=== PATIENT | female | born 1980 | race Caucasian/White ===

== ENCOUNTER 2019-11-21 08:00 | Outpatient (RCR) | payer OTHER, SELFPAY ==
--- NOTE | 2019-10-26 08:45 | PTOPEVAL ---
INITIAL PHYSICAL THERAPY EVALUATION and PLAN OF CARE Thank you for referring Deloris to [facility]. Please review, sign, date and return this plan of care SIS. She will be seen in PT 0-1x/wk x 4 wks. I agree with and certify that the following plan of care is medically necessary. Referring Physician Date Admitting Provider: Attending Provider: Juli Tyler MD Referring Provider: *PT Outpatient Evaluation Start: 10/26/19 07:43 Freq: Status: Active Protocol: Document 10/26/19 07:35 ZACH (Rec: 10/26/19 08:45 [email or web address] [id number]) Therapy Assessment Status Assessment Status Assessment Status Evaluation Outpatient Past Medical History Neurological History Hx Neurological Disorders No Significant History Cardiovascular History Hx Cardiac Disorders No Significant History Respiratory History Hx Asthma Yes: exercise induced Gastrointestinal History Hx Cholecystectomy Yes: 2016 Genitourinary History Hx Other Genitourinary Disorders Yes: cystocele, rectocele Musculoskeletal History Hx Other Musculoskeletal Disorders Yes: impingement R shoulder Endocrine History Hx Hypothyroidism Yes Psychosocial History Hx Anxiety Yes Hx Depression Yes Evaluation Information Problem Diagnosis pelvic organ prolaspe cystocele, rectocele Onset 2017 Subjective Information when she felt that she was Query Text:As Reported By Patient/ needing to have a BM - felt in Family vagina Prior Level of Function Activity Level (Last 3 Months) Occupation manager social services Hand Dominance Right Medications Home Meds (Include: OTC, RX, Vitamins, levothyroxine, zoloft, Herbals, Dose, Route,and Frequency) wellbuturin, klonidine, Query Text:Home Med Entries Will No metasolate-depression/anxiety Longer Recall From Past Visits. Home Meds Must Be Re-entered With Each Visit. Comments Additional Prior Level of Function recreation - play with Comments children Pain Assessment Timing of Pain Assessment Timing of Pain Assessment Assessment Self Report Self Report Pain Level 0 Pain Score Pain Score 0: Self Report Cervical and Lumbar ROM Lumbar ROM Lumbar ROM 75% of Normal Lumbar Comments equal SIJ mobility - no pain with motion Lower Extremity Range of Motion Hip Range of Motion Bilateral Reason Not Measured WNL/Left,WNL/Right Lower Extremity Muscle Strength Testing Hip Strength Bilateral Hip Flexion Strength 5 Normal Hip Abduction Strength 5 Normal Hip Adduction Strength 5 Normal Hip Medial Rotation Strength
--- NOTE | 2019-11-21 09:18 | PTOPEVAL ---
PHYSICAL THERAPY DISCHARGE NOTE Thank you for referring Deloris to [facility]. She has made progress towards goals set. She is competent with her HEP - she just needs to perform it on a regular basis. I agree with Deloris's discharge from physical therapy. Referring Physician Date Admitting Provider: Attending Provider: Juli Tyler MD Referring Provider: *PT Outpatient Evaluation Start: 10/26/19 07:43 Freq: Status: Active Protocol: Document 11/21/19 08:10 ZACH (Rec: 11/21/19 09:18 [email or web address] [email or web address]) Therapy Assessment Status Assessment Status Assessment Status Discharge Evaluation Information Problem Subjective Information Deloris reports that she hasn' Query Text:As Reported By Patient/ t noticed much different with Family leakage with cough, sneeze, or blowing nose - but she admits that she hasn't been very good with performing the exercises. She does feel a greater lift with her pelvic floor when performing the contractions. Pain Assessment Timing of Pain Assessment Timing of Pain Assessment Assessment Self Report Self Report Pain Level 0 Pain Score Pain Score 0: Self Report Pelvic Health Evaluation Pelvic Floor Assessment Sustained Levator Ani Strength increase lift present,able to hold x 10 cts Quick Levator Ani Contraction in 15 9 Seconds PT Clinical Summary Clinical Summary Protocol: PTEVCODE Clinical Summary Pelvic Organ Prolapse Distress Inventory 6 - 33.3% Deloris is able to perform the pelvic floor exercises well. Resistive exercises were added this date and she was able to perform the slower, sustained resistive exercises easier than the shorter, quick contraction similar to a cough, sneeze, blowing nose. She was encouraged to continue with the strengthening exercises on a more regular basis as well as engaging pelvic floor contraction when lifting children, groceries, etc. She is being d/c'ed from PT to HEP - she is to call if she has any questions.
== END 2019-11-22 08:37 | disposition home or self-care (01) ==
LOC: ANHPT 08:00
PROVIDERS: PCP Obstetrics & Gynecology Gynecology; Visit Provider Obstetrics & Gynecology Gynecology
DX: N81.89 Other female genital prolapse (principal); N81.10 Cystocele, unspecified; N81.6 Rectocele
CPT/HCPCS: 97110; 97161

== ENCOUNTER 2020-04-30 19:34 | Emergency (ER) | payer OTHER, SELFPAY ==
--- NOTE | ~2020-04-30 | XR_ITS ---
EXAMINATION: XR chest 2V DATE: 04/30/2020 21:28 INDICATION: Shortness of breath and dizziness TECHNIQUE: PA and lateral views of the chest are obtained. COMPARISON: None available FINDINGS: The lungs are free of acute opacities. There is no pleural effusion or pneumothorax. The ca rdiomediastinal silhouette is normal. There is mild thoracic spondylosis. Surgical clips in the right upper quadrant are likely from prior cholecystectomy. IMPRESSION: 1. No acute cardiopulmonary abnormality. Reviewed, dictated and finalized at location A.
[2020-04-30 19:37] VITALS: BP 142/89; PULSE 94; RESP 20; TEMP 36.4; O2SAT 100
--- NOTE | 2020-04-30 19:40 | ECG_ITS ---
Measurements Intervals [place] Rate: 84 P: 27 WI: 108 QRS: 27 QRSD: 111 T: 21 QT: 386 QTc: 458 Interpretive Statements SINUS RHYTHM WITH SHORT WI INTERVAL INTRAVENTRICULAR CONDUCTION DELAY NONSPECIFIC T-WAVE ABNORMALITY- ANT/INF LEADS BORDERLINE ECG Electronically Signed On 05-01-2020 7:32:21 CDT by Moris Santos D.O.
[2020-04-30 19:51] LABS: Basophils Absolute Auto 0.1 K/mm3 (0.0-0.1); Basophils Percent Auto 0.8 % (0.2-1.2); Eosinophils Absolute Auto 0.1 K/mm3 (0-0.3); Eosinophils Percent Auto 0.4 % (0-4.4); Hematocrit 38.7 % (37.0-47.0); Hemoglobin 12.9 g/dL (12.0-15.0); Immature Granulocyte Absolute 0.07 K/mm3 (0.00-0.031); Immature Granulocyte Percent A 0.4 % (0-0.5); Lymphocytes Absolute Auto 2.85 K/mm3 (0.9-3.2); Lymphocytes Percent Auto 15.3 % (18.3-44.2); Mean Corpuscular HGB Conc 33.3 g/dl (32-36); Mean Platelet Volume 9.2 fl (7.4-10.4); Monocytes Percent Auto 5.2 % (2.6-8.5); Neutrophils Absolute Auto 14.5 K/mm3 (1.3-6.7); Neutrophils Percent Auto 77.9 % (45.5-73.1); Platelet Count Result 419 k/mm3 (150-375); Red Blood Count 4.45 M/mm3 (4.2-5.4); Red Cell Distribution Width 11.9 % (11.5-14.5); White Blood Count 18.6 K/mm3 (4.5-10.0)
[2020-04-30 20:02] LABS: Blood Urea Nitrogen 14 mg/dL (7-17); Calcium 9.1 mg/dL (8.4-10.2); Carbon Dioxide 21 mmol/L (22-30); Chloride 101 mmol/L (98-107); Estimated CRCL calculation 99 ml/min; Estimated Glomerular Filt Rate > 60; Glucose 122 mg/dL (65-105); Potassium 3.3 mmol/L (3.4-5.0); Sodium 134 mmol/L (137-145)
[2020-04-30 21:19] VITALS: O2SAT 100
--- NOTE | 2020-04-30 21:27 | PC.NURSE ---
ambulatory to restroom with steady gait.
--- NOTE | 2020-04-30 21:51 | ED.GENADULT ---
HPI - General Adult General Chief complaint: Shortness of Breath/Dyspnea Stated complaint: sob and dizzy Time Seen by Provider: 04/30/20 21:11 History of Present Illness HPI narrative: Patient is a 39 y/o female complaining moderate SOB, light-headedness, shakiness starting approximately 4 hours ago after a work out. There is no alleviating factor, but her symptoms mostly resolved spontaneously. She denies any fever, chill, cough or chest pain. Related Data Home Medications Medication Instructions Recorded Confirmed bupropion HCl 200 mg PO BID 04/30/20 buspirone 30 mg PO BID 04/30/20 levomefolate calcium 15 mg PO HS 04/30/20 levothyroxine [Synthroid] 50 mcg PO DAILY 04/30/20 quetiapine 04/30/20 quetiapine 100 mg PO HS 04/30/20 quetiapine 100 mg PO HS 04/30/20 sertraline 200 mg PO HS 04/30/20 trazodone 50 mg PO HS 04/30/20 Allergies Allergy/AdvReac Type Severity Reaction Status Date / Time papaya Allergy Mild MOUTH ITCHS Verified 04/30/20 21:11 pineapple Allergy Mild MOUTH ITCHS Verified 04/30/20 21:11 Kiwi Allergy Mild MOUTH ITCHS Uncoded 03/19/17 13:33 Review of Systems Constitutional: Constitutional: Denies chills, Denies fever(s), Denies headache(s) and Denies weakness Eyes: Eyes: Denies blurry vision ENT: Denies headache(s) and Denies neck pain Cardiovascular: Cardiovascular: Denies chest pain and Reports dyspnea Respiratory: Respiratory: Denies cough and Reports dyspnea Gastrointestinal: Gastrointestinal: Denies abdominal pain, Denies diarrhea, Denies nausea and Denies vomiting Genitourinary: Genitourinary: Denies hematuria and Denies dysuria Musculoskeletal: Musculoskeletal: Denies back pain and Denies neck pain Neurologic: Reports dizziness, Denies headache(s) and Denies weakness [facility] Family History Family History Father Hypertension Family history of diabetes mellitus in first degree relative Mother Hypertension Family history of liver disease Sibling Family history of malignant neoplasm of breast in first degree relative Social History Social History Smoking status: Never smoker Alcohol intake: never Gender identity (if verbalized by the patient): Female Exam Const: General: no acute distress and well developed Orientation/consciousness: oriented to person, oriented to place, oriented to time and patient oriented x3 HENMT: Head: normocephalic Ears: external ears normal General nose exam: Normal external nose present Eyes: General: appearance normal, both eyes and all related structures Conjunctivae: conjunctivae normal Neck: Neck: normal visual inspection and full ROM Chest: Chest palpation & inspection: normal inspection of the chest and no tenderness Resp: Effort & Inspection: normal respiratory effort Auscultation: clear to auscultation bilaterally Cardio: Rate: regular rate Rhythm: regular rhythm GI: GI Palp: No abdominal tenderness and Yes Soft to palpation Skin: General skin exam: normal color and turgor normal Neuro: General: oriented to person, oriented to place, oriented to time and patient oriented x3 Cognition (Neuro): normal cognition Extrem: General: normal to inspection, full ROM and no pedal edema Psych: Appearance: grossly normal Mental Status: mental status grossly normal Affect: normal affect Course Vital Signs Vital signs: Vital Signs Temperature 36.4 C L 04/30/20 19:37 Pulse Rate 94 04/30/20 19:37 Respiratory Rate 20 04/30/20 19:37 Blood Pressure 142/89 H 04/30/20 19:37 Pulse Oximetry 100 04/30/20 19:37 Temperature 36.4 C L 04/30/20 19:37 Pulse Rate 93 04/30/20 23:11 Respiratory Rate 18 04/30/20 23:11 Blood Pressure 125/82 04/30/20 23:11 Pulse Oximetry 99 04/30/20 23:11 Medical Decision Making Vital Signs Vital Signs: Vital Signs Temperature 36.4 C L 04/30/20 19:37 Pulse
[2020-04-30 22:02] LABS: Creatine Kinase 384 U/L (30-135)
[2020-04-30 22:15] LABS: NT Pro B Type Natriuretic Pept 24 PG/ML (5-100); Troponin I < 0.012 ng/mL (0.000-0.034)
[2020-04-30] MEDS: POTASSIUM CHLORIDE 20 MEQ TABLET PO (22:34)
[2020-04-30 22:36] VITALS: BP 132/87; PULSE 97; RESP 18; O2SAT 100
[2020-04-30 22:37] LABS: D Dimer 0.27 ug/mL (<0.48)
[2020-04-30 23:11] VITALS: BP 125/82; PULSE 93; RESP 18; O2SAT 99
== END 2020-04-30 23:13 | disposition home or self-care (01) ==
PROVIDERS: Emergency Medicine; Emergency Provider Emergency Medicine
DX: R06.02 Shortness of breath (principal)
CPT/HCPCS: 36415; 71046; 80048; 82550; 83880; 84484; 85025; 85380; 93005; 99284; A9270

== ENCOUNTER 2021-01-17 19:29 | Emergency (ER) | payer OTHER, SELFPAY ==
[2021-01-17 19:43] VITALS: BP 140/87; PULSE 95; RESP 16; TEMP 36.8; O2SAT 99
--- NOTE | 2021-01-17 19:44 | ECG_ITS ---
Measurements Intervals [place] Rate: 87 P: 49 MT: 132 QRS: 22 QRSD: 102 T: 15 QT: 352 QTc: 424 Interpretive Statements SINUS RHYTHM BORDERLINE T WAVE ABNORMALITY- INFERIOR LEADS BASELINE ARTIFACT- III, AVL BORDERLINE ECG Electronically Signed On 01-18-2021 7:48:46 CDT by Moris Santos D.O.
--- NOTE | 2021-01-17 19:47 | ED.GENADULT ---
HPI - General Adult General Chief complaint: Chest Pain Stated complaint: Pain in chest and abdomen Time Seen by Provider: 01/17/21 19:40 Source: patient and RN notes reviewed Mode of arrival: ambulatory Limitations: no limitations History of Present Illness HPI narrative: 40-year-old female presents to the [facility] with complaints of chest pain and pressure, epigastric pain and pressure associated with nausea and shortness of breath. Patient states the nausea started about a week ago but the chest pain and pressure started this morning. Denies any cardiac history. Patient has a history of depression. Related Data Home Medications Medication Instructions Recorded Confirmed trazodone 50 mg PO HS 04/30/20 Allergies Allergy/AdvReac Type Severity Reaction Status Date / Time papaya Allergy Mild MOUTH ITCHS Verified 01/17/21 19:43 pineapple Allergy Mild MOUTH ITCHS Verified 01/17/21 19:43 Kiwi Allergy Mild MOUTH ITCHS Uncoded 01/17/21 19:43 Review of Systems Review of Systems: Narrative: CONSTITUTIONAL: Denies fever, chills, or sweats. EYES: Denies visual changes, redness, or discharge. ENT: Denies rhinorrhea, congestion, sore throat, or otalgia. CARDIOVASCULAR: Reports chest pain and pressure. Denies palpitations edema. RESPIRATORY: Denies cough. Reports dyspnea. GASTROINTESTINAL: Reports epigastric abdominal pain, nausea. Denies vomiting or diarrhea. MUSCULOSKELETAL: Denies back pain, joint pain, or myalgia. NEUROLOGIC: Denies headache, numbness, or weakness. PSYCHIATRIC: Denies anxiety or depression. All other systems reviewed are negative, except as documented in HPI. [facility] Past Medical History Medical History (Updated 01/17/21 @ 19:53 by Maria Victoria Persaud) Depression Family History Family History Father Hypertension Family history of diabetes mellitus in first degree relative Mother Hypertension Family history of liver disease Sibling Family history of malignant neoplasm of breast in first degree relative Social History Social History Smoking status: Never smoker Alcohol intake: never Gender identity (if verbalized by the patient): Female Comments At the time of my signature, I reviewed and agree with the nursing past medical, surgical, social, and family history. There is no relevant family history pertinent to the patient complaint. Exam Narrative: Exam Narrative: GENERAL: This is a well-nourished, well-developed patient, in no apparent distress. Is not diaphoretic. HEAD: normocephalic, atraumatic. EYES: PERRL. Sclera clear/white. Vision is grossly intact. EARS: External ears normal. CARDIOVASCULAR: Regular rate and rhythm without murmurs, gallops, or rubs. RESPIRATORY: Clear to auscultation. Breath sounds equal bilaterally. No wheezes, rales, or rhonchi. GASTROINTESTINAL: Abdomen soft, non-tender, nondistended. No guarding. SKIN: warm, intact with no suspicious lesions or rash, good texture and turgor. NEURO: awake, alert, and oriented to person, place and time. There were no obvious focal neurologic abnormalities. EXTREMITIES: No joint tenderness, effusion, or edema noted. BACK: Nontender without deformity. Course Course Emergency Course: Patient arrived to [facility] with concerns for sternal chest pain and pressure radiating to the left side along with epigastric pain and pressure. EKG performed. Discussed with patient transfer to the ER via EMS, patient declined EMS transport would rather drive herself. Discussed risks versus benefits and patient still declined EMS transfer. Vital Signs Vital signs: Vital Signs Temperature 98.3 F 01/17/21 19:43 Pulse Rate 95 01/17/21 19:43 Respiratory Rate 16 01/17/21 19:43 Blood Pressure 140/87 01/17/21 19:43 Pulse Oximetry 99 01/17/21 19:43 Temperature 98.3 F 01/17/21 19:43 Pulse Rate 95 01/17/21 19:43 Respirato
[2021-01-17 19:59] VITALS: BP 140/87; PULSE 95; RESP 16; TEMP 36.8; O2SAT 99
== END 2021-01-17 19:44 | disposition short-term general hospital (02) ==
PROVIDERS: Emergency Provider Nurse Practitioner
DX: R07.9 Chest pain, unspecified (principal); F32.9 Major depressive disorder, single episode, unspecified
CPT/HCPCS: 93005; 99213; G0463

== ENCOUNTER 2021-01-17 20:02 | Emergency (ER) | payer OTHER, SELFPAY ==
--- NOTE | ~2021-01-17 | CT_ITS ---
EXAMINATION: CT abdomen pelvis w con INDICATION: Epigastric abdominal pain TECHNIQUE: Computed tomographic images of the abdomen and pelvis were obtained after the administrati on of 100 cc of Omnipaque 350 intravenous contrast. The dose-length product (DLP) was 758.45 mGy-cm. Automated exposure control and iterative reconstruction technique were employed. COMPARISON: None available FINDINGS: The lung bases are clear. The heart size is normal. The gallbladder is surgically absent. T he liver, spleen, pancreas, and adrenal glands the right kidney is unremarkable. Hypoattenuating lesi ons of the left kidney measuring up to 5 mm are too small to characterize but likely represent cysts. No pathologically enlarged abdominal or pelvic lymph nodes are identified. There is no free intraper itoneal gas or evidence of bowel obstruction. The appendix is normal. There is a small fat-containing umbilical hernia. Left ovarian cysts measure up to 3 cm. IMPRESSION: 1. No CT correlate for the patient's symptoms. Reviewed, dictated and finalized at location A.
--- NOTE | ~2021-01-17 | XR_ITS ---
EXAMINATION: XR chest 2V DATE: 01/17/2021 21:03 INDICATION: Midsternal chest pain TECHNIQUE: PA and lateral views of the chest are obtained. COMPARISON: 04/30/2020 FINDINGS: The lungs are free of acute opacities. There is no pleural effusion or pneumothorax. The ca rdiomediastinal silhouette is normal. The visualized bones and soft tissues are unremarkable. IMPRESSION: 1. No acute cardiopulmonary abnormality. Reviewed, dictated and finalized at location A.
[2021-01-17 20:21] VITALS: BP 141/76; PULSE 96; RESP 16; TEMP 36.4; O2SAT 99
--- NOTE | 2021-01-17 20:23 | ECG_ITS ---
Measurements Intervals [place] Rate: 89 P: 34 ND: 116 QRS: 37 QRSD: 112 T: 5 QT: 337 QTc: 412 Interpretive Statements SINUS RHYTHM WITH SHORT ND INTERVAL INTRAVENTRICULAR CONDUCTION DELAY BORDERLINE T WAVE ABNORMALITY- INFERIOR LEADS BASELINE ARTIFACT- II, AVR BORDERLINE ECG Electronically Signed On 01-18-2021 7:47:45 CDT by Moris Santos D.O.
[2021-01-17 20:34] LABS: Basophils Absolute Auto 0.1 K/mm3 (0.0-0.1); Basophils Percent Auto 0.9 % (0.2-1.2); Eosinophils Absolute Auto 0.1 K/mm3 (0-0.3); Eosinophils Percent Auto 0.9 % (0-4.4); Hematocrit 39.6 % (37.0-47.0); Hemoglobin 12.7 g/dL (12.0-15.0); Immature Granulocyte Absolute 0.05 K/mm3 (0.00-0.031); Immature Granulocyte Percent A 0.4 % (0-0.5); Lymphocytes Absolute Auto 3.71 K/mm3 (0.9-3.2); Lymphocytes Percent Auto 29.8 % (18.3-44.2); Mean Corpuscular HGB Conc 32.1 g/dl (32-36); Mean Corpuscular Hemoglobin 28.3 pg (26-34); Mean Corpuscular Volume 88.4 fl (80-100); Mean Platelet Volume 9.1 fl (7.4-10.4); Monocytes Absolute Auto 0.7 K/mm3 (0.1-0.6); Monocytes Percent Auto 5.4 % (2.6-8.5); Neutrophils Absolute Auto 7.8 K/mm3 (1.3-6.7); Neutrophils Percent Auto 62.6 % (45.5-73.1); Platelet Count Result 354 k/mm3 (150-375); Red Blood Count 4.48 M/mm3 (4.2-5.4); Red Cell Distribution Width 12.7 % (11.5-14.5); White Blood Count 12.5 K/mm3 (4.5-10.0)
[2021-01-17 20:41] LABS: INR 0.9; Prothrombin Time 12.4 Seconds (11.1-14.7)
[2021-01-17 20:42] LABS: Lipase 116 U/L (23-300)
[2021-01-17 20:44] LABS: Anion Gap 6 mmol/L (8-16); Blood Urea Nitrogen 11 mg/dL (7-17); Calcium 9.2 mg/dL (8.4-10.2); Carbon Dioxide 29 mmol/L (22-30); Chloride 102 mmol/L (98-107); Estimated CRCL calculation 100 ml/min; Estimated Glomerular Filt Rate > 60; Glucose 94 mg/dL (65-105); Potassium 3.8 mmol/L (3.4-5.0); Sodium 137 mmol/L (137-145)
[2021-01-17 20:55] LABS: Troponin I < 0.012 ng/mL (0.000-0.034)
[2021-01-17 21:04] VITALS: BP 136/71; PULSE 94; RESP 16; O2SAT 100
--- NOTE | 2021-01-17 21:08 | ED.GENADULT ---
HPI - General Adult General Chief complaint: Abdominal Pain Stated complaint: reflux, chest pain, abdominal pain, from exp care Time Seen by Provider: 01/17/21 20:39 Source: RN notes reviewed History of Present Illness HPI narrative: Patient presents emergency department from home for epigastric abdominal pain. Patient states symptoms initially occurred 2 weeks ago and progressively worsened. Patient states pain most recently occurred last night and resolved on their own and then reoccurred today around 4:00 the pain is located in the lower midsternal chest and upper epigastric region described as a pressure associated with nausea. Patient denies any fevers or chills shortness of breath diarrhea or any other symptoms states she does have a history of reflux disease. Patient gone to the urgent care and was referred to the ED for further evaluation Related Data Home Medications Medication Instructions Recorded Confirmed bupropion HCl 1 mg PO BID 01/17/21 01/17/21 buspirone 1 mg PO TID 01/17/21 01/17/21 quetiapine 1 mg PO DAILY 01/17/21 01/17/21 sertraline 1 mg PO BID 01/17/21 01/17/21 trazodone 1 mg PO DAILY 01/17/21 01/17/21 Allergies Allergy/AdvReac Type Severity Reaction Status Date / Time papaya Allergy Mild MOUTH ITCHS Verified 01/18/21 03:18 pineapple Allergy Mild MOUTH ITCHS Verified 01/18/21 03:18 Kiwi Allergy Mild MOUTH ITCHS Uncoded 01/18/21 03:18 Review of Systems Review of Systems: Narrative: Gen.: Denies fevers or chills ENT: Denies congestion Respiratory: Denies shortness of breath or cough CV: Reports chest pain GI: Reports epigastric abdominal pain and nausea, denies emesis or diarrhea Musculoskeletal: Denies back pain or muscle pain Neuro: Denies numbness, tingling, weakness or focal weakness Skin: Denies rash Except as documented, all other systems reviewed and negative PMF Past Medical History Medical History Depression Family History Family History Father Hypertension Family history of diabetes mellitus in first degree relative Mother Hypertension Family history of liver disease Sibling Family history of malignant neoplasm of breast in first degree relative Social History Social History Smoking status: Never smoker Alcohol intake: never Gender identity (if verbalized by the patient): Female Exam Narrative: Exam Narrative: APPEARANCE: No acute distress, nontoxic, resting in bed HEENT: Normocephalic, atraumatic, OMM RESPIRATORY: No respiratory distress, clear to auscultation bilaterally with no rhonchi wheezing or rales CARDIOVASCULAR: RRR s murmur ABDOMINAL: Soft nondistended tender palpation epigastric region and right upper quadrant no tenderness left upper quadrant, right lower quadrant left lower quadrant no rebound or guarding MUSCULOSKELETAl: Moves all extremities. No clubbing, cyanosis or edema. NEURO: Awake and alert. Following commands, speech normal, no focal deficits SKIN:: Warm, dry. Normal Color PSYCHIATRIC: Normal affect/mood Course Course Emergency Course: Patient meets PERC rule criteria and no further testing needs to be performed for pulmonary embolism. Discussed with Dr. Saldivar for hospital service admission for pain control and GI. At this time time recommends I discussed with GI on-call as with the weekend may be appropriate for discharge to follow-up as an outpatient Plan discussed with Dr. Vitale for GI presentation work-up. This time recommends patient be discharged with follow-up with an outpatient for possible endoscopy and further evaluation agrees a plan for Protonix Patient states that they are feeling much better at this time. States abdominal pain has improved. Repeat abdominal exam shows the patient's abdomen to be soft no surgical abdomen present discussed with patient results of workup
[2021-01-17] MEDS: SODIUM CHLORIDE 0.9% IV 1,000 ML 999 ML IV CONT (21:20)
[2021-01-17] MEDS: ONDANSETRON INJ 4 MG/2 ML VIAL IV PUSH (21:20)
[2021-01-17 22:34] VITALS: BP 135/81; PULSE 87; RESP 16; O2SAT 100
[2021-01-17] MEDS: PANTOPRAZOLE SODIUM IV 40 MG VIAL IV PUSH (23:01)
[2021-01-17 23:58] LABS: Troponin I < 0.012 ng/mL (0.000-0.034)
[2021-01-18] MEDS: MORPHINE SULFATE (*CRX) 4 MG/ML INJ IV PUSH (00:54)
[2021-01-18 01:38] VITALS: BP 138/81; PULSE 90; RESP 16; O2SAT 100
[2021-01-18] MEDS: DICYCLOMINE HCL INJ 20 MG/2 ML VIAL IM (02:10)
[2021-01-18 02:58] LABS: Troponin I < 0.012 ng/mL (0.000-0.034)
[2021-01-18] MEDS: HYDROmorphone HCL INJ (*CRX) 1 MG/ML SYR 0.5 MG IV PUSH (02:59)
[2021-01-18 03:08] VITALS: BP 131/86; PULSE 86; RESP 16; O2SAT 100
[2021-01-18 03:20] VITALS: BP 141/84; PULSE 73; RESP 16; O2SAT 100
[2021-01-18 03:33] VITALS: BP 141/84; PULSE 73
[2021-01-18 03:48] VITALS: BP 132/76; PULSE 82; RESP 16; O2SAT 100
== END 2021-01-18 04:00 | disposition home or self-care (01) ==
PROVIDERS: Emergency Provider Emergency Medicine; PCP Internal Medicine
DX: R10.13 Epigastric pain (principal); F32.9 Major depressive disorder, single episode, unspecified; I45.9 Conduction disorder, unspecified; R94.31 Abnormal electrocardiogram [ECG] [EKG]
CPT/HCPCS: 36415; 71046; 74177; 80048; 81025; 83690; 84484; 85025; 85610; 85730; 93005; 96361; 96365; 96372; 96374; 96375; 99284; A9270; C9113; J0131; J0500; J1170; J2270; J2405; J7030; Q9967

== ENCOUNTER → 2021-01-31 12:30 | Outpatient (CLI) | payer OTHER, SELFPAY ==
--- NOTE | ~2021-01-31 | MM_ITS ---
EXAMINATION: MM screening cathy BI w nakia HISTORY: Screening mammogram, family history of breast cancer in her sister. TECHNIQUE: Craniocaudal and mediolateral oblique 3-D tomosynthesis images were obtained and synthetic 2-D images were generated. CAD analysis was submitted and interpreted. COMPARISON: None, baseline BREAST PARENCHYMAL COMPOSITION: The breasts are heterogeneously dense, which may obscure small masses . FINDINGS: There is no evidence of suspicious mass, calcification, or architectural distortion to sugg est malignancy in either breast. IMPRESSION: 1. No mammographic evidence of malignancy. 2. Recommend routine screening mammography in one year. BI-RADS Category 1: Negative Reviewed, dictated and finalized at location A.
== END ==
PROVIDERS: Visit Provider Obstetrics & Gynecology Gynecology
DX: Z12.31 Encounter for screening mammogram for malignant neoplasm of breast (principal)
CPT/HCPCS: 77063; 77067

== ENCOUNTER → 2022-07-16 10:47 | Outpatient (CLI) | payer BC, SELFPAY ==
--- NOTE | ~2022-07-16 | MM_ITS ---
EXAMINATION: MM screening [facility] BI w nakia HISTORY: Screening mammogram, family history of breast cancer in her sister. TECHNIQUE: Craniocaudal and mediolateral oblique 3-D tomosynthesis images were obtained and synthetic 2-D images were generated. CAD analysis was submitted and interpreted. COMPARISON: 01/31/2021 BREAST PARENCHYMAL COMPOSITION: The breasts are heterogeneously dense, which may obscure small masses . FINDINGS: No suspicious mass, calcification, or architectural distortion are identified in either fabiola ast to suggest malignancy. There has been no suspicious interval change. IMPRESSION: 1. No mammographic evidence of malignancy. 2. Recommend routine screening mammography in one year. BI-RADS Category 1: Negative Reviewed, dictated and finalized at location B.
== END ==
PROVIDERS: PCP Obstetrics & Gynecology Gynecology; Visit Provider Obstetrics & Gynecology Gynecology
DX: Z12.31 Encounter for screening mammogram for malignant neoplasm of breast (principal)
CPT/HCPCS: 77063; 77067

== ENCOUNTER 2022-11-01 16:15 | Emergency (ER) | payer BC, SELFPAY ==
[2022-11-01 16:17] VITALS: BP 150/95; PULSE 93; RESP 18; TEMP 37.3; O2SAT 100
[2022-11-01 18:07] LABS: D Dimer 0.37 ug/mL (<0.48)
--- NOTE | 2022-11-01 18:18 | ED.EXTPRO ---
HPI - Extremity Problem General Chief complaint: Extremity Problem,Nontraumatic Stated complaint: right calf pain History of Present Illness HPI Narrative: 42 year old female with a history of anxiety/depression presents to the ER from the urgent care for evaluation to rule out a DVT in her right calf. States she woke up this am with calf pain that is worse when the muscle is squeezed. Denies injury/trauma. Denies pain with ambulation. No hx of PE/DVT, not on OBC, no recent surgeries/fractures, and does not experience extended periods of immobility. Related Data Home Medications Medication Instructions Recorded Confirmed bupropion HCl 200 mg tablet,12 hr 1 mg PO BID 01/17/21 01/17/21 sustained-release buspirone 15 mg tablet 1 mg PO TID 01/17/21 01/17/21 quetiapine 50 mg tablet 1 mg PO DAILY 01/17/21 01/17/21 sertraline 100 mg tablet 1 mg PO BID 01/17/21 01/17/21 trazodone 100 mg tablet 1 mg PO DAILY 01/17/21 01/17/21 Allergies Allergy/AdvReac Type Severity Reaction Status Date / Time papaya Allergy Mild MOUTH ITCHS Verified 01/18/21 03:18 pineapple Allergy Mild MOUTH ITCHS Verified 01/18/21 03:18 Kiwi Allergy Mild MOUTH ITCHS Uncoded 01/18/21 03:18 Review of Systems Review of Systems: CONSTITUTIONAL: Denies fever, chills, or sweats. EYES: Denies visual changes, redness, or discharge. ENT: Denies rhinorrhea, congestion, sore throat, or otalgia. CARDIOVASCULAR: Denies chest pain, palpitations, or edema. RESPIRATORY: Denies cough or dyspnea. GASTROINTESTINAL: Denies abdominal pain, nausea, vomiting, or diarrhea. GENITOURINARY: Denies dysuria or hematuria. SKIN: Denies rash or itching. MUSCULOSKELETAL: Denies back pain, joint pain, or myalgia. NEUROLOGIC: Denies headache, numbness, dizziness, or weakness. PSYCHIATRIC: Denies anxiety or depression. [facility] Past Medical History Medical History Depression Family History Family History Father Hypertension Family history of diabetes mellitus in first degree relative Mother Hypertension Family history of liver disease Sibling Family history of malignant neoplasm of breast in first degree relative Social History Social History Smoking status: Never smoker Alcohol intake: never Gender identity (if verbalized by the patient): Female Exam Narrative: GENERAL: Well-appearing, well-nourished, no physical limitations, and in no acute distress. HEAD: Normocephalic, atraumatic. EYES: Conjunctivae normal, PERRLA and EOMI. CHEST: Clear to auscultation. No respiratory distress. No wheezes rales or rhonchi. HEART: Regular rate and rhythm. No murmur heard. Normal peripheral pulses. EXTREMITIES: LLE: Negative Homans' sign. No signs of erythema or ecchymosis. Tenderness over the calf. Neurovascular is intact distally. SKIN: Warm, dry, no rash. No noted wounds NEURO: No focal deficits. Alert and oriented x3. MAEW. CN's II-XI intact bilaterally, normal gait PSYCH: Cooperative. Normal mood and affect. Course Vital Signs Vital signs: Vital Signs Temperature 37.3 C 11/01/22 16:17 Pulse Rate 93 11/01/22 16:17 Respiratory Rate 18 11/01/22 16:17 Blood Pressure 150/95 H 11/01/22 16:17 Pulse Oximetry 100 11/01/22 16:17 Oxygen Delivery Room Air 11/01/22 16:17 Temperature 37.3 C 11/01/22 16:17 Pulse Rate 93 11/01/22 16:17 Respiratory Rate 18 11/01/22 16:17 Blood Pressure 150/95 H 11/01/22 16:17 Pulse Oximetry 100 11/01/22 16:17 Oxygen Delivery Room Air 11/01/22 16:17 MDM - Extremity (Nontraumatic) Lab Data Labs: Lab Results 11/01/22 Range/Units 17:46 D-Dimer 0.37 (<0.48) ug/mL Discharge Plan Discharge Clinical Impression: Calf pain Patient Disposition: Home, Self-Care Condition: Stable Instructions: Antibiotic Form, Leg
== END 2022-11-01 18:20 | disposition home or self-care (01) ==
PROVIDERS: Emergency Provider Nurse Practitioner Family; PCP Internal Medicine
DX: M79.661 Pain in right lower leg (principal); F41.9 Anxiety disorder, unspecified; F32.A Depression, unspecified
CPT/HCPCS: 36415; 85380; 99283

== ENCOUNTER → 2023-01-27 11:26 | Outpatient (CLI) | payer BC, SELFPAY | PROVIDERS: PCP Internal Medicine; Visit Provider Internal Medicine | DX: M25.562 Pain in left knee (principal) | CPT/HCPCS: 73562 ==

== ENCOUNTER → 2023-10-28 11:24 | Outpatient (CLI) | payer BC, SELFPAY ==
--- NOTE | ~2023-10-28 | MM_ITS ---
EXAMINATION: MM screening [facility] BI w nakia HISTORY: Screening TECHNIQUE: Craniocaudal and mediolateral oblique 3-D tomosynthesis images were obtained and synthetic 2-D images were generated. CAD analysis was submitted and interpreted. COMPARISON: Comparison to multiple prior studies sequentially, with oldest reviewed study dated 01/31. BREAST PARENCHYMAL COMPOSITION: There are scattered areas of fibroglandular density. FINDINGS: There is no evidence of suspicious mass, calcification, or architectural distortion to sugg est malignancy in either breast. There has been no suspicious interval change. IMPRESSION: 1. No mammographic evidence of malignancy. 2. Recommend routine screening mammography in one year. BI-RADS Category 1: Negative Reviewed, dictated and finalized at location A. SCOPY TECH
== END ==
PROVIDERS: PCP Internal Medicine; Visit Provider Advanced Practice Midwife
DX: Z12.31 Encounter for screening mammogram for malignant neoplasm of breast (principal)
CPT/HCPCS: 77063; 77067

== ENCOUNTER 2024-06-18 18:13 | Emergency (ER) | payer BC, SELFPAY ==
--- NOTE | 2024-06-18 18:18 | ED.GENADULT ---
HPI - General Adult General Chief complaint: Wound/Laceration Stated complaint: PUNCTURE WOUND L INDEX FINGER Time Seen by Provider: 06/18/24 18:19 Source: patient Mode of arrival: ambulatory Limitations: no limitations History of Present Illness HPI narrative: 44-year-old female patient presents to the [facility] with complaints of a puncture wound to the left index finger. Patient states that she punctured it yesterday with a tagging gun. Patient states it did bleed and she did clean off the blood loss with soap water yesterday. Patient states she is in today because she knows she is not up-to-date on her tetanus shot. Related Data Home Medications Medication Instructions Recorded Confirmed bupropion HCl 200 mg tablet,12 hr 1 mg PO BID 01/17/21 06/18/24 sustained-release buspirone 15 mg tablet 1 mg PO TID 01/17/21 06/18/24 quetiapine 50 mg tablet 1 mg PO DAILY 01/17/21 06/18/24 sertraline 100 mg tablet 1 mg PO BID 01/17/21 06/18/24 cariprazine 1.5 mg capsule 1.5 mg PO DAILY 06/18/24 06/18/24 (Vraylar) diazepam 5 mg tablet 5 mg PO BID PRN Anxiety 06/18/24 06/18/24 ferrous sulfate 325 mg (65 mg 325 mg PO DAILY 06/18/24 06/18/24 iron) tablet (FeroSul) levothyroxine 50 mcg tablet 50 mcg PO DAILY 06/18/24 06/18/24 metformin 500 mg tablet 500 mg PO BID 06/18/24 06/18/24 spironolactone 50 mg tablet 50 mg PO DAILY 06/18/24 06/18/24 Allergies Allergy/AdvReac Type Severity Reaction Status Date / Time papaya Allergy Mild MOUTH ITCHS Verified 06/18/24 18:26 pineapple Allergy Mild MOUTH ITCHS Verified 06/18/24 18:26 Kiwi Allergy Mild MOUTH ITCHS Uncoded 06/18/24 18:26 Review of Systems Review of Systems: CONSTITUTIONAL: Denies fever, chills, or sweats. EYES: Denies visual changes, redness, or discharge. ENT: Denies rhinorrhea, congestion, sore throat, or otalgia. CARDIOVASCULAR: Denies chest pain, palpitations, or edema. RESPIRATORY: Denies cough or dyspnea. GASTROINTESTINAL: Denies abdominal pain, nausea, vomiting, or diarrhea. GENITOURINARY: Denies dysuria or hematuria. SKIN: Denies rash or itching. Positive puncture wound to left index finger MUSCULOSKELETAL: Denies back pain, joint pain, or myalgia. NEUROLOGIC: Denies headache, numbness, or weakness. PSYCHIATRIC: Denies anxiety or depression. [facility] Past Medical History Medical History Depression Family History Family History Father Hypertension Family history of diabetes mellitus in first degree relative Mother Hypertension Family history of liver disease Sibling Family history of malignant neoplasm of breast in first degree relative Social History Social History Smoking status: Never smoker Alcohol intake: never Gender identity (if verbalized by the patient): Female Comments At the time of my signature I agree with nursing past medical history, surgical, social, and family history. There is no relevant family history pertinent to the presenting complaint. Exam Narrative: GENERAL: Well-appearing, well-nourished, and in no acute distress. HEAD: Normocephalic, atraumatic. EYES: PERRLA and EOMI. ENT: Nares clear, no rhinorrhea or epistaxis. Mucous membranes moist. NECK: Supple. No lymphadenopathy CHEST: Clear to auscultation. No respiratory distress. HEART: Regular rate and rhythm. No murmur heard. Normal peripheral pulses. ABDOMEN: Soft, nontender, nondistended, normal active bowel sounds. EXTREMITIES: Normal range of motion. No edema. SKIN: Warm, dry, no rash. Patient has small puncture wound noted to the palm side of the left index finger between the PIP and PIP joint with some surrounding bruising. Patient has normal cap refill no active bleeding at this time no signs symptoms of infection. NEURO: No focal deficits. Alert and oriented x3. [facility]
[2024-06-18 18:26] VITALS: BP 134/94; PULSE 74; RESP 16; TEMP 35.9; O2SAT 98
[2024-06-18 18:29] VITALS: BP 134/94; PULSE 74; RESP 16; TEMP 35.9; O2SAT 98
[2024-06-18] MEDS: TETANUS,DIPHTHERIA,AC PERTUSSIS ADULT (0.5 ML) BOOSTRIX IM (18:40)
== END 2024-06-18 19:05 | disposition home or self-care (01) ==
PROVIDERS: Emergency Provider Nurse Practitioner Family; PCP Internal Medicine
DX: S61.231A Puncture wound without foreign body of left index finger without damage to nail, initial encounter (principal); W27.8XXA Contact with other nonpowered hand tool, initial encounter; Z23 Encounter for immunization; F32.A Depression, unspecified
CPT/HCPCS: 90471; 90715; 99212; G0463

== ENCOUNTER 2024-07-05 18:55 | Emergency (ER) | payer BC, SELFPAY ==
--- NOTE | ~2024-07-05 | XR_ITS ---
EXAMINATION: XR chest 2V Exam Date/Time: 07/05/2024 19:25 CDT HISTORY: chest pain Comparison: 01/17/2021. RESULT: Lines, tubes, and devices: Cholecystectomy clips. Lungs and pleura: Clear. Cardiomediastinal silhouette: Stable. Other: No acute osseous or upper abdominal finding. IMPRESSION: No acute cardiopulmonary process. Reviewed, dictated and finalized at location K.
[2024-07-05 18:59] VITALS: BP 150/84; PULSE 93; RESP 16; TEMP 36.3; O2SAT 100
--- NOTE | 2024-07-05 19:02 | ECG_ITS ---
Test Date: 2024-07-05 19:16:31 Measurements Intervals Ida Rate: 89 P: 40 MI: 127 QRS: 41 QRSD: 91 T: 30 QT: 359 QTc: 439 Interpretive Statements SINUS RHYTHM NONSPECIFIC ST-T WAVE ABNORMALITY- ANTEROLATERAL LEADS BASELINE WANDER- II, III, V4-V6 BORDERLINE ECG No previous ECG available for comparison Electronically Signed On 07-06-2024 05:41:16 CDT by Moris Santos D.O.
--- NOTE | 2024-07-05 19:14 | ED.CHESTPAIN ---
HPI - Chest Pain General Chief Complaint: Chest Pain Stated Complaint: chest pain Time Seen by Provider: 07/05/24 19:11 History of Present Illness HPI narrative: Patient with history of anxiety presents here with intermittent chest discomfort over two days. nonexertional, associated occasionally with some nausea. No focal numbness or weakness, no shortness of breath or cough or fevers or chills. Related Data Home Medications Medication Instructions Recorded Confirmed bupropion HCl 200 mg tablet,12 hr 1 mg PO BID 01/17/21 06/18/24 sustained-release buspirone 15 mg tablet 1 mg PO TID 01/17/21 06/18/24 quetiapine 50 mg tablet 1 mg PO DAILY 01/17/21 06/18/24 sertraline 100 mg tablet 1 mg PO BID 01/17/21 06/18/24 cariprazine 1.5 mg capsule 1.5 mg PO DAILY 06/18/24 06/18/24 (Vraylar) diazepam 5 mg tablet 5 mg PO BID PRN Anxiety 06/18/24 06/18/24 ferrous sulfate 325 mg (65 mg 325 mg PO DAILY 06/18/24 06/18/24 iron) tablet (FeroSul) levothyroxine 50 mcg tablet 50 mcg PO DAILY 06/18/24 06/18/24 metformin 500 mg tablet 500 mg PO BID 06/18/24 06/18/24 spironolactone 50 mg tablet 50 mg PO DAILY 06/18/24 06/18/24 Allergies Allergy/AdvReac Type Severity Reaction Status Date / Time papaya Allergy Mild MOUTH ITCHS Verified 07/05/24 18:56 pineapple Allergy Mild MOUTH ITCHS Verified 07/05/24 18:56 Kiwi Allergy Mild MOUTH ITCHS Uncoded 07/05/24 18:56 Review of Systems Review of Systems: All systems reviewed & are unremarkable except as noted in HPI and below PMFSH Past Medical History Medical History Depression Family History Family History Father Hypertension Family history of diabetes mellitus in first degree relative Mother Hypertension Family history of liver disease Sibling Family history of malignant neoplasm of breast in first degree relative Social History Social History (Reviewed 06/18/24 @ 18:30 by CAMILLE Corley Smoking status: Never smoker Alcohol intake: never Gender identity (if verbalized by the patient): Female Exam Narrative: EXAMINATION OF ORGAN SYSTEMS/BODY AREAS: Constitutional: Vital signs per nursing GENERAL:[No acute distress, non-toxic appearing.] HEAD: Normal with no signs of head trauma. EYES: EOMI, conjunctiva normal ENT: Hearing grossly intact LUNGS: Nonlabored breathing. Clear to auscultation bilaterally HEART: [Regular rate and rhythm], normal radial pulses ABD: [Soft], [nontender to palpation] EXT: Normal range of motion SKIN: [No rashes or lesions.] NEURO: [Alert and oriented x 3. No gross focal sensory or strength deficits.] PSYCH: Normal affect Course Vital Signs Vital signs: Vital Signs Temperature 97.3 F L 07/05/24 18:59 Pulse Rate 93 07/05/24 18:59 Respiratory Rate 16 07/05/24 18:59 Blood Pressure 150/84 H 07/05/24 18:59 Pulse Oximetry 100 07/05/24 18:59 Oxygen Delivery Room Air 07/05/24 18:59 Temperature 97.3 F L 07/05/24 18:59 Pulse Rate 93 07/05/24 18:59 Respiratory Rate 16 07/05/24 18:59 Blood Pressure 150/84 H 07/05/24 18:59 Pulse Oximetry 100 07/05/24 18:59 Oxygen Delivery Room Air 07/05/24 18:59 MDM - Chest Pain MDM Narrative Medical decision making narrative: ED COURSE AND MEDICAL DECISION MAKIN-year-old female presenting with chest pain. EKG done in triage negative for acute ischemic changes. Cardiac workup is initiated. EKG: Performed in triage and interpreted by me. Normal sinus rhythm. Rate 89. Normal axis. MD normal. QRS duration normal. QTc normal. No pathologic Q waves. No ST segment elevation or depression to suggest acute ischemia. No RV strain pattern. compared to prior EKG, appears similar. No acute ischemic changes on EKG and no risk factors and chest pain being nonexertional makes me less concerned for ACS. Negative PERC making PE unlikely. Present
[2024-07-05 20:05] VITALS: O2SAT 98
[2024-07-05 20:17] VITALS: BP 134/94; PULSE 84; RESP 18; O2SAT 99
== END 2024-07-05 20:19 | disposition home or self-care (01) ==
LOC: ANHED 20:02
PROVIDERS: Emergency Provider Emergency Medicine; PCP Internal Medicine
DX: R07.89 Other chest pain (principal); F32.A Depression, unspecified; Z79.899 Other long term (current) drug therapy; Z79.84 Long term (current) use of oral hypoglycemic drugs; R94.31 Abnormal electrocardiogram [ECG] [EKG]
CPT/HCPCS: 71046; 93005; 99283

== ENCOUNTER 2024-11-01 10:55 | Outpatient (CLI) | payer BC, SELFPAY ==
--- NOTE | ~2024-11-01 | MM_ITS ---
EXAMINATION: MM screening [facility] BI w nakia HISTORY: Screening TECHNIQUE: Craniocaudal and mediolateral oblique 3-D tomosynthesis images were obtained and synthetic 2-D images were generated. CAD analysis was submitted and interpreted. COMPARISON: Comparison to multiple prior studies sequentially, with oldest reviewed study dated 01/31. BREAST PARENCHYMAL COMPOSITION: Not dense: There are scattered areas of fibroglandular density. FINDINGS: Asymmetry in the upper outer quadrant of the right breast has increased compared with prior examinations. There is a small obscured mass in the outer aspect of the right breast on CC view, mid dle third. The left breast is stable without evidence for malignancy. IMPRESSION: 1. Developing right breast asymmetry with new obscured mass outer aspect of the right breast on CC vi ew. 2. Additional right mammographic views and possible breast ultrasound are recommended. BI-RADS Category 0: Incomplete: Needs additional imaging evaluation. Reviewed, dictated and finalized at location A. ECT PRODUCTION ENGINEER IMPRESSION: 1. Developing right breast asymmetry with new obscured mass outer aspect of the right breast on CC view. 2. Additional right mammographic views and possible breast ultrasound are recom mended. BI-RADS Category 0: Incomplete: Needs additional imaging evaluation.
== END 2024-11-01 10:56 | disposition home or self-care (01) ==
LOC: MICIMG 10:56
PROVIDERS: PCP Internal Medicine; Visit Provider Obstetrics & Gynecology Gynecology
DX: Z12.31 Encounter for screening mammogram for malignant neoplasm of breast (principal); R92.8 Other abnormal and inconclusive findings on diagnostic imaging of breast
CPT/HCPCS: 77063; 77067

== ENCOUNTER 2024-11-14 07:53 | Outpatient (CLI) | payer BC, SELFPAY ==
--- NOTE | ~2024-11-14 | MMUS_ITS ---
EXAMINATION: MM diagnostic cathy RT w nakia, US breast RT limited HISTORY: Follow-up right breast asymmetry TECHNIQUE: Additional 3-D tomosynthesis images of the right breast were performed and synthetic 2-D i mages were generated. CAD analysis was submitted and interpreted. High resolution limited right breas t ultrasound was performed. COMPARISON: Comparison to multiple prior studies sequentially, with oldest reviewed study dated 01/31. BREAST PARENCHYMAL COMPOSITION: Dense: The breasts are heterogeneously dense, which may obscure small masses FINDINGS: MAMMOGRAPHIC FINDINGS: There are masses in the outer aspect of the right breast, and particularly the upper outer quadrant. These masses are obscured, largest measuring 1.9 cm. No suspicious calcifications or architectural di stortion. ULTRASOUND: Limited right breast ultrasound: There are multiple cysts of the right breast, Largest in the 11:00 p osition measuring 1.7 cm corresponding to the dominant mass seen on mammography. There are no suspicious masses to suggest malignancy. IMPRESSION: 1. No evidence for malignancy in the right breast. Benign findings. 2. Routine yearly screening mammogram and regular clinical breast examination are recommended. BI-RADS Category 2: Benign finding(s). Reviewed, dictated and finalized at location B. ECT LEAD IMPRESSION: 1. No evidence for malignancy in the right breast. Benign findings. 2. Routine yearly screening mammogram and regular clinical breast examination a re recommended. BI-RADS Category 2: Benign finding(s).
== END 2024-11-14 07:54 | disposition home or self-care (01) ==
LOC: MICIMG 07:54
PROVIDERS: PCP Internal Medicine; Visit Provider Obstetrics & Gynecology Gynecology
DX: R92.8 Other abnormal and inconclusive findings on diagnostic imaging of breast (principal)
CPT/HCPCS: 76642; 77061; 77065; G0279